=== PATIENT | male | born 1990 | race Caucasian/White ===

== ENCOUNTER 2024-05-13 09:12 | Emergency (ER) | payer SELFPAY ==
[~2024-05-13] VITALS: Ht 172.7 cm; Wt 84.8 kg
[2024-05-13] MEDS ORDERED: CYCL5TAB PO (10:15)
[2024-05-13] MEDS ORDERED: IBUP-1953 PO (10:15)
[2024-05-13] MEDS ORDERED: LIDO30AD10 TP (10:15)
[2024-05-13 14:44] VITALS: BP 132/76; TEMP 98.2; O2SAT 98
== END 2024-05-13 10:30 | disposition home or self-care (01) ==
LOC: ER 09:18
DX: Z04.1 Encounter for examination and observation following transport accident (principal); Z60.2 Problems related to living alone; V89.2XXA Person injured in unspecified motor-vehicle accident, traffic, initial encounter; Y93.89 Activity, other specified; Y92.89 Other specified places as the place of occurrence of the external cause; Y99.8 Other external cause status